=== PATIENT | male | born 1985 | race Caucasian/White ===

== ENCOUNTER 2016-07-03 14:26 | Emergency (ER) | payer OTHER ==
[~2016-07-03] VITALS: Ht 177.8 cm; Wt 90.0 kg
[2016-07-03 14:30] VITALS: Ht 177.8 cm; Wt 90.0 kg
--- NOTE | 2016-07-03 14:58 | EMERGENCY ROOM VISIT NOTE ---
ED Visit Note First contact with patient: 14:39 CHIEF COMPLAINT: Finger laceration HISTORY OF PRESENT ILLNESS: This 30 year old male patient presents to the emergency department after cutting the tip of the left ring finger with a circular saw approximately 45 minutes ago. The bleeding has stopped. Denies weakness or numbness of the hand. The patient rates the pain as throbbing and 5/ 10. The patient denies any other injuries. The patient's Tetanus shot is up to date. He is right-hand dominant. REVIEW OF SYSTEMS: A 6 system review of systems was completed with positives and pertinent negatives listed in the HPI. ALLERGIES: Penicillin MEDICATIONS: None PMH: None SOCIAL HISTORY: Current every day heavy smoker. Denies alcohol, illicit drugs. PHYSICAL EXAM: Vital Signs: Reviewed Nurse's notes, vital signs stable. GENERAL : Pleasant and cooperative, in no acute distress, well-developed, well- nourished. SKIN: There is a 1.5 cm long laceration on the pad of the left fourth finger tip. There is no nailbed involvement. The wound edges are irregular, macerated. The edges gape apart with traction. There is no foreign material in the wound and it looks clean. There is minimal bleeding. No deep structures such as tendons, bones, or significant blood vessels are seen in the base of the wound. Normal strength and movement of all the fingers of the left hand. Capillary refill less than 2 seconds. Normal sensation to light and sharp touch. EMERGENCY DEPARTMENT COURSE: I examined the patient. Differential diagnosis includes laceration, open fracture, foreign body. Wound as described above. X- ray of the finger was done, no fracture and no foreign body noted. Verbal consent was obtained to perform the procedure. Using sterile technique the wound was cleansed with Betadine. The area was sterilely draped. 2 ml of 0.5% bupivacaine was used to perform a digital block. Once the patient was anesthetized, the wound was copiously irrigated under pressure with sterile saline. The wound was explored and was as described above. The laceration was repaired using 5 simple interrupted 5-0 nylon sutures with the wound edges being well approximated. The patient tolerated the procedure well. Hemostasis was achieved. The area was cleaned with sterile saline and dressed with bacitracin ointment and bandage. A metal finger splint was also applied for immobilization. The patient was discharged home in good condition. Current/Historical Medications No Active Prescriptions or Reported Meds Allergies Coded Allergies: Penicillins (Unverified Allergy, Unknown, rash, 07/03/16) Vital Signs Date Time Temp Pulse Resp B/P Pulse Ox O2 Delivery O2 Flow Rate FiO2 07/03/16 16:25 36.7 74 16 131/78 100 07/03/16 16:24 74 16 131/78 100 Room Air 07/03/16 14:30 36.7 74 16 137/75 100 Room Air Departure Information Impression Primary Impression: Laceration of left ring finger w/o foreign body w/o damage to nail Dispostion Home / Self-Care Condition GOOD Prescriptions No Active Prescriptions or Reported Meds Referrals No Doctor, Assigned (PCP) Patient Instructions ED Laceration Hand, [facility], [facility] Additional Instructions Keep wound clean and dry. Leave the dressing in place for the next 24 hours. After that, you may change the dressing and clean the wound with warm soapy water. Do not immerse the hand in water until fully healed. Do not allow any crusting or dried blood to accumulate on sutures. If this occurs, use a 1:1 solution of hydrogen peroxide/water on a Q-tip to clean the wound. Use an antibiotic ointment for 3-4 days, then let wound dry. Suture removal in about 10 days. Follow up with PCP or return to ER for suture removal. Return sooner for any signs of infection (increasing redness, swelling, pus drainage, streaking up the hand/arm, fevers/chills). Ice and elevate for swelling and pain. Ibuprofen 600 mg and Tylenol 1000 mg every 8 hrs as needed for pain. Keep covered when in sun until sutures removed then SPF 50 or higher for one year. Vitamin E oil if desired two weeks after suture removal for reduction of scar. Problem Qualifiers Primary Impression: Laceration of left ring finger w/o foreign body w/o damage to nail Encounter type: initial encounter Qualified Codes: S61.215A - Laceration without foreign body of left ring finger without damage to nail, initial encounter
[2016-07-03] MEDS ORDERED: BUPIVACAINE 0.5 % 5 MG/1 ML MPF 30ML VIAL INFIL ONE (15:00)
--- NOTE | 2016-07-03 15:23 | DIAGNOSTIC IMAGING REPORT ---
LEFT FOURTH FINGER 3 VIEWS CLINICAL HISTORY: Laceration. FINDINGS: 3 views of the left fourth finger are obtained. No prior studies are available for comparison at the time of dictation. The skeletal structures are well mineralized. No fracture is seen. The fourth metacarpophalangeal and interphalangeal joints are well-maintained. Soft tissue edema and a cutaneous injury are seen at the tip of the fourth finger. No radiodense foreign body is identified. IMPRESSION: 1. No acute bony abnormality is seen in the left fourth finger. 2. A soft tissue injury is noted at the tip of the fourth digit. No radiodense foreign body is seen. Electronically signed by: Jomar Pozo M.D. 07/03/2016 3:22 PM Dictated Date/Time: 07/03/2016 3:21 PM
[2016-07-03 16:25] VITALS: BP 131/78; PULSE 74; TEMP 36.7; O2SAT 100
== END 2016-07-03 16:35 | disposition home or self-care (01) ==
LOC: C.EDB 14:27 → C.EDD 16:35
DX: S61.215A Laceration without foreign body of left ring finger without damage to nail, initial encounter (principal); W31.2XXA Contact with powered woodworking and forming machines, initial encounter; F17.200 Nicotine dependence, unspecified, uncomplicated